=== PATIENT | male | born 1960 | race Caucasian/White ===

== ENCOUNTER 2021-10-25 08:03 | Outpatient (CLI) | payer BC, SELFPAY ==
--- NOTE | 2021-10-25 08:14 | ECG_ITS ---
Measurements Intervals [place] Rate: 56 P: 39 MD: 206 QRS: 41 QRSD: 105 T: 24 QT: 394 QTc: 383 Interpretive Statements SINUS BRADYCARDIA BORDERLINE AV CONDUCTION DELAY DELAYED PRECORDIAL R/S TRANSITION MINIMAL Q WAVES- HIGH LATERAL LEADS BASELINE ARTIFACT- I, II, III, AVR, AVL, AVF, V1, V5-V6 BORDERLINE ECG Electronically Signed On 10-25-2021 8:39:34 [employer] DEVELOPER by Roberto Otoole D.O.
== END 2021-10-25 08:04 | disposition home or self-care (01) ==
LOC: ANHSURGERY 08:11
PROVIDERS: PCP Family Medicine; Visit Provider Surgery
DX: E78.2 Mixed hyperlipidemia (principal); I45.9 Conduction disorder, unspecified
CPT/HCPCS: 93005

== ENCOUNTER 2021-10-26 00:16 | Day surgery (SDC) | payer BC, SELFPAY ==
[2021-10-19 10:53] VITALS: BMI 25.2
--- NOTE | 2021-10-19 11:03 | PC.NURSE ---
Report to the Outpatient Waiting Room, entrance under the green pavilion located off [facility], at time 10:00 on date 10/26/21. OR Time: 12:00. - You will be asked a series of questions to screen for COVID 19 for your protection. - A mask is required within the hospital. - No visitors are allowed at this time. Preoperative COVID Testing Requirements: No COVID Test needed if: (proof is required; if not received patient will have Rapid Test prior to entry) - Patient has received COVID Vaccine at least 14 days prior to procedure date or - Patient has positive COVID test result within last 90 days of surgery date. COVID Test needed if above criteria is not met Patients may have clear liquids (water, carbonated beverages, clear teas, apple juice) until 3 hours prior to surgery (9:00) with a maximum of 20 ounces. - No food from midnight until time of surgery Take the following medications with a SIP of water the morning of surgery: SERTRALINE Medications to discontinue per physician: VITAMINS/SUPPLEMENTS Date to take last dose: 10/22/21 Please no make-up, nail tajik, hairspray, perfume, deodorant, or body powder the day of surgery. No jewelry (including any body piercings) or valuables the day of surgery, leave them at home. Please take a shower or bath the night before, or the morning of, surgery with an antibacterial soap. Wear comfortable, loose fitting clothing. HIBICLENS SHOWER - Jewelry must be removed prior to entering the operating room. Rings and piercings that are not removed may be cut off. - The hospital will not accept responsibility for valuables. - Please leave all valuables, including medications, at home the day of surgery. If you are going home after surgery, a licensed company truck driver must drive you home. - NO public transportation without another adult. - We recommend that an adult stay with you for 24 hours following discharge. - We also recommend that you do not drive, make important decision, drink alcoholic beverages, or take any drugs that were not prescribed by your health care provider for at least 24 hours after your discharge time. Follow any additional instructions given to you from your surgeon. Telephone instructions given to MIGUEL A MORRISON and asked if any additional questions and then verbalized understanding. Patient advised to call surgeon office or pre surgery nurse liaison [phone] if any additional questions.
[2021-10-26] VITALS (8 sets, daily range): BP systolic 105–141; BP diastolic 60–87; PULSE 62–89; RESP 12–20; TEMP 36.2–36.9; O2SAT 96–100
[2021-10-26] MEDS: ACETAMINOPHEN 500 MG TABLET 1000 MG PO (08:11)
[2021-10-26] MEDS: LACTATED RINGERS 1,000 ML 30 ML IV CONT ×2 (08:15→11:18)
[2021-10-26] MEDS: KETOROLAC 15 MG/ML VIAL (*BKC) IV PUSH (08:20)
--- NOTE | 2021-10-26 08:56 | P.PNAN_ITS ---
Anes - Initial Pre Proc Eval Procedure: Operation Date: 10/26/21 09:30 Proposed Procedures p Umbilical Hernia Repair, Possible Mesh - Bryn Davila DO Date/Time: 10/26/21 08:56 Surgeon: Bryn Davila DO Pre Op Diagnosis: umbilical hernia Patient Data Age: 61 Gender: M Height: 1.88 m Weight: 84.4 kg Last Vital Signs Temp 98.4 F 10/26/21 07:44 Pulse 62 10/26/21 07:44 Resp 20 10/26/21 07:44 BP 141/87 H 10/26/21 07:44 Pulse Ox 99 10/26/21 07:44 Allergies Allergy/AdvReac Type Severity Reaction Status Date / Time No Known Allergies Allergy Verified 10/26/21 07:50 Home Medications Medication Instructions Recorded Confirmed Type sertraline 100 mg tablet 100 mg PO DAILY #90 tablet 07/22/20 10/26/21 Rx ibuprofen 200 mg tablet 400 mg PO PRN PRN tablet 07/25/21 10/26/21 History atorvastatin 20 mg PO HS 10/19/21 10/26/21 History psyllium seed (sugar) 1 tbsp PO DAILY 10/19/21 10/26/21 History Patient hx anesthesia problems: none Family hx anesthesia problems: none Results Review: All pre-operative results and documents have been reviewed as part of the pre-operative evaluation. [facility] Past Medical History Medical History Anxiety Burning tongue syndrome Carpal tunnel syndrome Cervical disc disease Glossitis (~10/2018) Unspecified osteoarthritis, unspecified site Surgical History Surgical History History of carpal tunnel surgery both wrist History of elbow surgery Family History Family History Mother Family history of thyroid disease Father , 86 Heart attack Heart disease Social History Social History Smoking status: Never smoker Second hand tobacco smoke exposure: No Alcohol intake: current Drinks per week: 4 Alcohol use details: 4/MONTH Substance use: never Substance use type: does not use Living arrangements: with family 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 Informed Consent: The patient's anesthetic plan and its attendant risks and benefits were discussed with the patient/family/POA. Questions were solicited an d answers provided to the satisfaction of the patient/family/POA.
--- NOTE | 2021-10-26 10:17 | WPDHPUPDATE1 ---
History and Physical Update Update Date/Time: 10/26/21 10:17 History and Physical has been reviewed, including an updated exam of the patient. There are NO changes in the patient's condition. Risks, benefits, and alternatives have been discussed and questions answered. Patient agrees to proceed with procedure.
--- NOTE | 2021-10-26 10:17 | PM.IMHP ---
H&P: HPI History of Present Illness Date/Time: 10/26/21 10:17 Chief Complaint: Umbilical hernia Narrative: This is a 61-year-old man who presents for umbilical hernia repair. He reports no changes since last seen in the office. Review of Systems Review of Systems: All systems reviewed & are unremarkable except as noted in HPI and below Constitutional: Constitutional: Denies chills, Denies fever(s), Denies headache(s) and Denies weight loss Eyes: Eyes: Denies change in vision ENT: Denies dizziness, Denies headache(s), Denies neck mass and Denies throat swelling Cardiovascular: Cardiovascular: Denies chest pain, Denies lightheadedness and Denies dyspnea Respiratory: Respiratory: Denies cough, Denies dyspnea and Denies wheezing Gastrointestinal: Gastrointestinal: Denies abdominal pain, Denies change in bowel habits, Denies nausea and Denies vomiting Genitourinary: Genitourinary: Denies hematuria and Denies dysuria Musculoskeletal: Musculoskeletal: Reports as per HPI Integumentary/Breasts: Skin/Breast: Reports as per HPI Neurologic: Denies dizziness and Denies headache(s) Allergic/Immunologic: Allergic/Immunologic: Denies throat swelling and Denies wheezing PMFSH Past Medical History Medical History Anxiety Burning tongue syndrome Carpal tunnel syndrome Cervical disc disease Glossitis (~10/2018) Unspecified osteoarthritis, unspecified site Surgical History Surgical History History of carpal tunnel surgery both wrist History of elbow surgery Family History Family History Mother Family history of thyroid disease Father , 86 Heart attack Heart disease Social History Social History Smoking status: Never smoker Second hand tobacco smoke exposure: No Alcohol intake: current Drinks per week: 4 Alcohol use details: 4/MONTH Substance use: never Substance use type: does not use Living arrangements: with family Additional occupation/education comments: [employer] Gender identity (if verbalized by the patient): Male Spiritual care concerns: No Meds Home Medications and Allergies Home Medications Medication Instructions Recorded Confirmed Type sertraline 100 mg tablet 100 mg PO DAILY #90 tablet 07/22/20 10/26/21 Rx ibuprofen 200 mg tablet 400 mg PO PRN PRN tablet 07/25/21 10/26/21 History atorvastatin 20 mg PO HS 10/19/21 10/26/21 History psyllium seed (sugar) 1 tbsp PO DAILY 10/19/21 10/26/21 History Allergies Allergy/AdvReac Type Severity Reaction Status Date / Time No Known Allergies Allergy Verified 10/26/21 07:50 Vital Signs Vital Signs - 24 hr 10/26/21 07:44 Temperature 36.9 C Pulse Rate 62 Respiratory Rate 20 Blood Pressure 141/87 H Pulse Oximetry 99 Exam Const: General: no acute distress and alert Orientation/consciousness: patient oriented x3 HENMT: Head: normocephalic and atraumatic Ears: hearing grossly normal bilaterally General nose exam: Normal nares present Mouth: Yes Normal oral and palatal mucosa present Eyes: Periorbital: periorbital findings normal Sclera: sclerae normal EOM: EOMs intact bilaterally Neck: Neck: normal visual inspection, no lymphadenopathy and trachea midline Chest: Chest palpation & inspection: normal inspection of the chest Resp: Effort & Inspection: normal respiratory effort Auscultation: clear to auscultation bilaterally Cardio: Jugular venous distension: no JVD Rate: regular rate Rhythm: regular rhythm Heart sounds: S1 normal heart sound present and S2 normal heart sound present Peripheral pulses: Peripheral pulses 2+ throughout GI: Inspection: normal to inspection GI Palp: Yes Soft to palpation, No Tenderness to palpation present (GI), No Guarding due to pal
[2021-10-26] MEDS: ceFAZolin 2 GM/D5W 50 ML 2 GM/50 ML BAG IVPB (10:33)
[2021-10-26] MEDS: BUPIVACAINE/EPINEPHRINE 0.5% 30 ML VIAL INFILTRATE (11:01)
--- NOTE | 2021-10-26 11:16 | W.PM.PROC2 ---
Procedure Note - Detailed Date of Procedure 10/26/21 Pre-op Diagnosis umbilical hernia Post-op Diagnosis same Procedure Performed Open umbilical hernia repair with 4.[address] hernia patch Surgeon Bryn Davila, DO Anesthesia general and local (0.5% bupivacaine with epinephrine) Indications This is a 61-year-old man who noticed a bulge at his umbilicus for about the past 10 years. More recently he has noticed that it increased in size and he is having some tenderness around the area. This is causing some protrusion of his umbilical skin. He was found to have a small umbilical hernia on physical exam. Discussions were made with the patient about treatment options and decision was made to proceed with open umbilical hernia repair with possible mesh. Findings Open umbilical hernia repair was performed. The patient was found have a 1 cm umbilical hernia defect. The hernia sac was containing preperitoneal fat. The hernia sac was excised and sent to the lab for pathology. I then chose to repair this using a 4.[address] hernia patch. The preperitoneal fat was cleared around the hernia defect to allow for the mesh to sit properly at the fascial edges. The mesh was then secured in place using 0 Ethibond [id number] sutures with the fascial closure. Description of Procedure Procedure as well as risks, benefits, and alternatives were discussed with the patient. Written consent was obtained and placed in chart prior to procedure. Patient was brought back to surgical suite. She was placed supine on operating table. She was then intubated by Anesthesia Department. Her abdomen was prepped and draped in sterile fashion using chlorhexidine prep. 0.5% bupivacaine with epinephrine was infiltrated locally around the operative area. A 4 cm curvilinear incision was made just inferior to the umbilicus using a 15 blade scalpel. Electrocautery was used for hemostasis and for dissection down through the subcutaneous fat. Hernia sac was encountered and this was carefully freed up from surrounding subcutaneous fat using electrocautery. The hernia sac was freed up all the way down to the level of the fascia, and then it was transected using electrocautery. The hernia sac was sent to the lab for pathology. The umbilical stalk was then lifted off of the fascia with electrocautery. The hernia defect was then measured. This was measuring approximately 10 mm. The decision was made to use a 4.[address] hernia patch. The peritoneum was cleared under the fascia circumferentially around the hernia using blunt dissection and electrocautery. Once a wide enough pocket was created for the mesh, the mesh was then placed within this preperitoneal pocket and laid out flat centered on the hernia defect. The mesh appeared to be sitting in proper position. The mesh was then secured with the fascial closure using 0 Ethibond [id number] sutures. A total of 3 sutures were placed vertically to approximate the fascia. The repair was inspected and appeared secure. 0.5% bupivacaine with epinephrine was infiltrated around the fascia and subcutaneous space. The umbilical stalk was then reapproximated to the fascia using a 3 0 Vicryl simple interrupted suture. The deep dermis was reapproximated using 3 0 Vicryl simple interrupted sutures, and then the skin was approximated using 4 Monocryl running subcuticular suture. Exofin glue was then applied on top. The patient was then awakened from anesthesia, extubated, and transferred to recovery. Implants 4.[address] hernia patch Estimated Blood Loss 5 Pathology yes (Hernia sac) Complications No immediate complications Condition stable Disposition same day
== END 2021-10-26 13:10 | disposition home or self-care (01) ==
PROVIDERS: PCP Family Medicine; Visit Provider Surgery
PROC: (CPT 49585; principal; 2021-10-26 09:30)
DX: K42.9 Umbilical hernia without obstruction or gangrene (principal); F41.9 Anxiety disorder, unspecified
CPT/HCPCS: 49585; 88302; A9270; C1781; J0690; J1885; J2250; J2270; J2405; J2704; J7120

== ENCOUNTER 2025-07-06 16:24 | Outpatient (CLI) | payer OTHER, SELFPAY ==
--- NOTE | ~2025-07-06 | XR_ITS ---
EXAMINATION: XR chest 2V, 07/06/2025 16:31 CDT HISTORY: R05.9 - Cough, unspecified COMPARISON: No comparisons available. Technique: 2 views obtained. Findings: The lungs are clear, no effusion. No pneumothorax. Heart is normal size. Mediastinal and hilar contours are within normal limits. Bony thorax no acute abnormality. Impression: No acute cardiopulmonary abnormality. Reviewed, dictated and finalized at location P. Impression: No acute cardiopulmonary abnormality.
== END 2025-07-06 16:25 | disposition home or self-care (01) ==
PROVIDERS: PCP Family Medicine; Visit Provider Student in an Organized Health Care Education/Training Program
DX: R05.9 Cough, unspecified (principal)
CPT/HCPCS: 71046